=== PATIENT | male | born 1965 | race Caucasian/White ===

== ENCOUNTER 2020-11-18 11:16 | Emergency (ER) | payer OTHER ==
[~2020-11-18] VITALS: Ht 170.2 cm; Wt 93.0 kg
[2020-11-18] MEDS ORDERED: MAGNESIUM/ALUMINUM HYDROXIDE/SIMETHICONE 30ML UDC PO ONE (11:45)
[2020-11-18 12:02] VITALS: BP 128/68
[2020-11-18 12:07] LABS: BASOPHILS % 0.5 % (0.0-2.0); EOSINOPHILS % 0.9 % (0.0-5.0); HEMATOCRIT. 45.1 % (42.0-52.0); HEMOGLOBIN. 15.6 g/dL (14.0-18.0); LYMPHOCYTES % 26.9 % (20.0-50.0); MEAN CORPUSCULAR HEMOGLOBIN 29.2 pg (28.0-32.0); MEAN PLATELET VOLUME 8.8 fl (7.4-10.4); MONOCYTES % 5.7 % (2.0-8.0); PLATELET 183 x1000/uL (130-400); RED BLOOD CELL COUNT 5.36 mill/uL (4.7-6.1); RED CELL DISTRIBUTION WIDTH 13.4 % (11.6-14.6)
[2020-11-18 12:14] LABS: CHLORIDE 113 mEq/L (98-107)
[2020-11-18] MEDS ORDERED: ACETAMINOPHEN 325MG TABLET PO ONE (13:45)
== END 2020-11-18 13:54 | disposition home or self-care (01) ==
LOC: ER 11:16
DX: R07.9 Chest pain, unspecified (principal); K29.70 Gastritis, unspecified, without bleeding; E11.9 Type 2 diabetes mellitus without complications; Z98.890 Other specified postprocedural states
CPT/HCPCS: 36415; 71045; 80053; 84484; 85025; 93005; 99285

== ENCOUNTER 2022-06-23 10:35 | Emergency (ER) | payer MEDICAID, OTHER ==
[~2022-06-23] VITALS: Ht 170.2 cm; Wt 89.0 kg
[2022-06-23] MEDS ORDERED: KETOROLAC 30MG/ML VIAL IM ONE (13:15)
[2022-06-23 14:10] VITALS: BP 124/74
[2022-06-23] MEDS ORDERED: IBUP-2029 MT (14:38)
== END 2022-06-23 15:17 | disposition home or self-care (01) ==
LOC: ER 10:35
DX: M25.562 Pain in left knee (principal); E11.9 Type 2 diabetes mellitus without complications; E78.00 Pure hypercholesterolemia, unspecified; Z90.49 Acquired absence of other specified parts of digestive tract
CPT/HCPCS: 73562; 82962; 96372; 99283; J1885; Z7610

== ENCOUNTER 2024-10-25 12:23 | Emergency (ER) | payer MEDICAID ==
[~2024-10-25] VITALS: Ht 170.2 cm; Wt 73.0 kg
[~2024-10-25 12:23] MED LIST: IBUP-1455 MT
[2024-10-25 12:31] VITALS: O2SAT 98
[2024-10-25] MEDS ORDERED: ACET-2708 MT (15:27)
[2024-10-25] MEDS ORDERED: BO1 TP (16:08)
[2024-10-25] MEDS: KETOROLAC 30MG/ML VIAL IM ONE (16:21)
[2024-10-25] MEDS: TETANUS, DIPHTHERIA, PERTUSSIS VAC/PF 0.5ML (>10YR OLD) IM ONE (16:22)
[2024-10-25 16:40] VITALS: BP 156/61; PULSE 61; RESP 16; TEMP 36.8; O2SAT 98
== END 2024-10-25 16:41 | disposition home or self-care (01) ==
LOC: ER 12:23
DX: S01.01XA Laceration without foreign body of scalp, initial encounter (principal); E78.00 Pure hypercholesterolemia, unspecified; E11.9 Type 2 diabetes mellitus without complications; Z79.01 Long term (current) use of anticoagulants; Z90.49 Acquired absence of other specified parts of digestive tract; W22.09XA Striking against other stationary object, initial encounter; Y93.89 Activity, other specified; Y92.89 Other specified places as the place of occurrence of the external cause; Y99.8 Other external cause status
CPT/HCPCS: 70450; 72125; 71250; 74176; 90715; 12002; 90471; 96372; 99285; J1885; Z7610; 12001